=== PATIENT | male | born 1940 | race Caucasian/White ===

== ENCOUNTER 2018-12-05 09:00 | Inpatient (IN) | payer MEDICARE ==
[~2018-12-05] VITALS: Ht 177.8 cm; Wt 84.8 kg
[~2018-12-05 09:00] MED LIST: ALLO100T30 PO; ASPI-496 PO; CALC0.5C9 PO; CARV-39 PO; NITR0.4T28 SL; OMEG500C PO; POTA20TA91 PO; PRAV80TA2 PO; TORS10TA4 PO; UBID100C24 PO; VALS40TA2 PO; WARF2.5T32 PO
--- NOTE | 2018-12-05 09:40 | NUR ---
PT AMBULATORY TO ROOM, ALL MONITORS PLACED, VSS. PT STTATES HE WAS SENT HERE BY DR HUYNH "I NEED A PARACENTESIS AND THORACENTESIS, WATER RETENTION" PT ALSO C/O STABBING LEFT FLANK PAIN X 2 MONTHS. PAIN 07/12. CALL LIGHT W/I REACH, BLANKET PROVIDED.
--- NOTE | 2018-12-05 09:57 | NUR ---
[facility] RPT TO [facility]
--- NOTE | 2018-12-05 10:08 | NUR ---
report from [facility]. pt resting comfortably in bed. awaiting md assessment.
--- NOTE | 2018-12-05 10:55 | NUR ---
PT RESTING IN BED. BLANKET PROVIDED. VSS. NO OTHER NEEDS AT THIS TIME. AWAITING EDMD ASSESSMENT.
[2018-12-05] MEDS ORDERED: HYDROmorphone 2 MG/ML, 1ML IVPush PRN (11:00)
[2018-12-05] MEDS ORDERED: SODIUM CHLORIDE FLUSH 10ML SYR IVF ONE (11:00)
[2018-12-05] MEDS ORDERED: HYDROmorphone 1 MG/ML, 1ML ONE (11:07)
--- NOTE | 2018-12-05 11:10 | NUR ---
per Servando in IR, pt will go to IR at 11:30. fluids will not be collected per edmd.
[2018-12-05] MEDS ORDERED: LIDOCAINE-MPF 1%, 5ML ONE (11:14)
[2018-12-05 11:47] LABS: BASOPHILS # (AUTO) 0.01 x10^3/uL (0-0.1); BASOPHILS % (AUTO) 0 % (0-1); EOSINOPHILS # (AUTO) 0.08 x10^3/uL (0-0.4); EOSINOPHILS % (AUTO) 2 % (1-7); LYMPHOCYTES # (AUTO) 0.36 x10^3/uL (1-3.4); LYMPHOCYTES % (AUTO) 8 % (22-44); MD NO; MEAN CORPUSCULAR HEMOGLOBIN 25.8 pg (27.5-34.5); MEAN CORPUSCULAR HGB CONC 31.6 g/dL (33.2-36.2); MEAN CORPUSCULAR VOLUME 81.6 fL (81-97); MEAN PLATELET VOLUME 7.4 fL (7.4-10.4); MONOCYTES # (AUTO) 0.39 x10^3/uL (0.2-0.8); MONOCYTES % (AUTO) 9 % (2-9); NEUTROPHILS # (AUTO) 3.67 x10^3/uL (1.8-6.8); NEUTROPHILS % (AUTO) 81 % (42-75); PLATELET COUNT 106 x10^3/uL (130-400); RED BLOOD COUNT 3.36 x10^6/uL (4.38-5.82); RED CELL DISTRIBUTION WIDTH 19.4 % (9.4-14.8)
[2018-12-05 11:59] LABS: ANION GAP 7 mmol/L (5-15); CALCIUM 8.6 mg/dL (8.5-10.1); CHLORIDE 109 mmol/L (98-107)
[2018-12-05 12:04] LABS: ALANINE AMINOTRANSFERASE 19 U/L (12-78); ALKALINE PHOSPHATASE 108 U/L (45-117); BILIRUBIN,TOTAL 1.3 mg/dL (0.2-1.0); CREATININE 3.42 mg/dL (0.7-1.3)
--- NOTE | 2018-12-05 12:24 | NUR ---
pt resting with lights dimmed. vss. still awaiting ir.
--- NOTE | 2018-12-05 12:49 | NUR ---
pt to ir at this time.
[2018-12-05 13:33] LABS: INTERNATIONAL NORMALIZED RATIO 1.4 (0.93-1.1); PROTHROMBIN TIME 14.5 Seconds (9.6-11.5)
--- NOTE | 2018-12-05 14:00 | NUR ---
PT BACK FROM IR. TOLERATED WELL. VSS. NO NEEDS AT THIS TIME. PT RESTING IN ROOM WITH AT BEDSIDE.
--- NOTE | 2018-12-05 15:40 | NUR ---
per edmd, Dr. Herrera coming to evaluate pt and provide admission recommendation. pt resting in room. no needs at this time.
--- NOTE | 2018-12-05 17:41 | NUR ---
dr. dobson to bedside
[2018-12-05 19:20] VITALS: BP 92/69
[2018-12-05] MEDS ORDERED: ACETAMINOPHEN 325 MG TABLET PO PRN (21:30)
[2018-12-05] MEDS ORDERED: LIDODERM 5% PATCH TD PRN (21:30)
[2018-12-05] MEDS ORDERED: ONDANSETRON ODT 4 MG PO PRN (21:30)
[2018-12-05] MEDS ORDERED: LABETALOL 5MG/ML, 20ML IVPush PRN (21:30)
[2018-12-05] MEDS ORDERED: DOCUSATE 100 MG CAPSULE PO PRN (21:30)
[2018-12-05] MEDS ORDERED: ATORVASTATIN 20 MG TABLET PO SCH (22:03)
[2018-12-05] MEDS ORDERED: WARFARIN 2 MG TABLET PO-COUM ONE (23:00)
[2018-12-06] MEDS: TEMAZEPAM 15 MG CAPSULE PO PRN ×2 (00:42→20:29)
[2018-12-06 01:20] VITALS: BP 102/65
[2018-12-06] MEDS: OXYcodone/APAP 5/325MG TABLET PO PRN ×4 (06:04→23:51)
[2018-12-06 06:09] LABS: BASOPHILS # (AUTO) 0.01 x10^3/uL (0-0.1); BASOPHILS % (AUTO) 0 % (0-1); EOSINOPHILS # (AUTO) 0.22 x10^3/uL (0-0.4); EOSINOPHILS % (AUTO) 6 % (1-7); LYMPHOCYTES # (AUTO) 0.43 x10^3/uL (1-3.4); LYMPHOCYTES % (AUTO) 11 % (22-44); MD NO; MEAN CORPUSCULAR HEMOGLOBIN 26.2 pg (27.5-34.5); MEAN CORPUSCULAR HGB CONC 32.4 g/dL (33.2-36.2); MEAN PLATELET VOLUME 7.4 fL (7.4-10.4); MONOCYTES # (AUTO) 0.35 x10^3/uL (0.2-0.8); MONOCYTES % (AUTO) 9 % (2-9); NEUTROPHILS # (AUTO) 2.83 x10^3/uL (1.8-6.8); NEUTROPHILS % (AUTO) 74 % (42-75); PLATELET COUNT 103 x10^3/uL (130-400); RED BLOOD COUNT 3.43 x10^6/uL (4.38-5.82); RED CELL DISTRIBUTION WIDTH 19.5 % (9.4-14.8)
[2018-12-06 06:13] LABS: ANION GAP 5 mmol/L (5-15); CALCIUM 8.3 mg/dL (8.5-10.1); CHLORIDE 111 mmol/L (98-107)
[2018-12-06 06:14] LABS: CREATININE 3.17 mg/dL (0.7-1.3)
[2018-12-06 07:00] VITALS: BP 108/69
[2018-12-06] MEDS ORDERED: METOLAZONE 2.5 MG TABLET PO SCH (09:00)
[2018-12-06] MEDS ORDERED: POTASSIUM CHLORIDE 10 MEQ TABLET.ER PO ONE (09:00)
[2018-12-06] MEDS: POTASSIUM CHLORIDE 10 MEQ TABLET.ER PO SCH (09:00)
[2018-12-06] MEDS ORDERED: TEMPLATE NON-FORMULARY MED. (Ubidecarenone (Coq-10) 100 MG) PO SCH (09:00)
[2018-12-06] MEDS: OMEGA-3/FISH OIL CAPSULE PO SCH ×2 (09:21→20:29)
[2018-12-06] MEDS: CALCITRIOL 0.5 MCG CAPSULE PO SCH (09:21)
[2018-12-06] MEDS: ASPIRIN 81 MG TABLET EC PO SCH (09:21)
[2018-12-06] MEDS: ALLOPURINOL 100 MG TABLET PO SCH (09:21)
[2018-12-06] MEDS ORDERED: TORSEMIDE 20 MG TABLET PO SCH (09:30)
[2018-12-06] MEDS ORDERED: METOLAZONE 5 MG TABLET ONE (10:22)
[2018-12-06] MEDS: AMIODARONE 200 MG TABLET PO SCH (10:29)
[2018-12-06 13:32] LABS: CALCIUM 8.6 mg/dL (8.5-10.1)
[2018-12-06 13:36] LABS: INTERNATIONAL NORMALIZED RATIO 1.38 (0.93-1.1); PROTHROMBIN TIME 14.3 Seconds (9.6-11.5)
[2018-12-06 13:59] VITALS: BP 110/73
[2018-12-06 14:50] LABS: MICROSCOPIC INDICATED
[2018-12-06 15:02] LABS: CULTURE INDICATED? NO
[2018-12-06] MEDS ORDERED: WARFARIN 3 MG TABLET PO-COUM ONE (18:00)
[2018-12-06] MEDS: CARVEDILOL 25 MG TABLET PO SCH (18:04)
[2018-12-06 20:00] VITALS: BP 93/59
[2018-12-06] MEDS ORDERED: PRAVASTATIN 40 MG TABLET PO SCH (21:00)
[2018-12-07 01:30] VITALS: BP 94/60
[2018-12-07 06:07] VITALS: BP 94/58
[2018-12-07] MEDS: CARVEDILOL 25 MG TABLET PO SCH (06:12)
[2018-12-07 06:15] LABS: INTERNATIONAL NORMALIZED RATIO 1.5 (0.93-1.1); PROTHROMBIN TIME 15.5 Seconds (9.6-11.5)
[2018-12-07 06:21] LABS: ALBUMIN 2.6 g/dL (3.4-5.0); ANION GAP 5 mmol/L (5-15); CALCIUM 8.3 mg/dL (8.5-10.1); CHLORIDE 110 mmol/L (98-107)
[2018-12-07 06:27] LABS: % IRON SATURATION 8 % (20-55); CREATININE 3.17 mg/dL (0.7-1.3); IRON LEVEL 30 mcg/dL (65-175); TOTAL IRON BINDING CAPACITY 363 mcg/dL (250-450)
[2018-12-07 07:32] VITALS: BP 103/65
[2018-12-07] MEDS ORDERED: TORSEMIDE 20 MG TABLET PO SCH (09:00)
[2018-12-07] MEDS: ALLOPURINOL 100 MG TABLET PO SCH (09:54)
[2018-12-07] MEDS: IRON SUCROSE COMPLEX 100MG/5ML IV SCH ×2 (09:54→10:43)
[2018-12-07] MEDS: OMEGA-3/FISH OIL CAPSULE PO SCH (09:54)
[2018-12-07] MEDS: POTASSIUM CHLORIDE 10 MEQ TABLET.ER PO SCH (09:55)
[2018-12-07] MEDS: ASPIRIN 81 MG TABLET EC PO SCH (09:55)
[2018-12-07] MEDS: AMIODARONE 200 MG TABLET PO SCH (09:55)
[2018-12-07] MEDS: CALCITRIOL 0.5 MCG CAPSULE PO SCH (09:55)
[2018-12-07] MEDS: OXYcodone/APAP 5/325MG TABLET PO PRN (09:59)
[2018-12-07] MEDS ORDERED: METO2.5T PO (11:12)
[2018-12-07] MEDS ORDERED: LIDO700A20 TD (11:12)
[2018-12-07] MEDS ORDERED: TORS20TA PO (11:12)
[2018-12-07] MEDS ORDERED: CARV25TA12 PO (11:12)
[2018-12-07] MEDS ORDERED: AMIO200T42 PO (11:12)
[2018-12-07] MEDS ORDERED: ACET325T14 PO (11:12)
[2018-12-07 12:17] LABS: CREATININE,URINE RANDOM 44.5 mg/dL
[2018-12-07] MEDS ORDERED: TRAM50TA2 PO (14:12)
[2018-12-07] MEDS ORDERED: WARFARIN 5 MG TABLET PO-COUM ONE (18:00)
== END 2018-12-07 13:49 | disposition home or self-care (01) | DRG 682 ==
LOC: ED 10:52 → OBSVTOIN 17:36 → EDIP 17:36 → INTOOBSV 17:36 → 4EST 19:07 → DCLOUNGE 12-07 13:12
PROVIDERS: ADMIT Hospitalist; ATTEND Hospitalist
PROC: 0W993ZZ Drainage of Right Pleural Cavity, Percutaneous Approach (ICD-10-PCS; principal; 2018-12-05)
PROC: 0W9G3ZZ Drainage of Peritoneal Cavity, Percutaneous Approach (ICD-10-PCS; 2018-12-05)
DX: N17.9 Acute kidney failure, unspecified (principal); I50.23 Acute on chronic systolic (congestive) heart failure; D68.69 Other thrombophilia; I42.9 Cardiomyopathy, unspecified; R18.8 Other ascites; J91.8 Pleural effusion in other conditions classified elsewhere; N18.4 Chronic kidney disease, stage 4 (severe); G89.29 Other chronic pain; M10.9 Gout, unspecified; M54.9 Dorsalgia, unspecified; D50.9 Iron deficiency anemia, unspecified; D69.2 Other nonthrombocytopenic purpura; E78.5 Hyperlipidemia, unspecified; I25.2 Old myocardial infarction; Z87.891 Personal history of nicotine dependence; Z95.1 Presence of aortocoronary bypass graft; Z95.810 Presence of automatic (implantable) cardiac defibrillator
CPT/HCPCS: 32555; 36415; 49083; 71045; 76770; 80048; 80053; 80069; 81001; 82310; 82436; 82570; 82728; 83540; 83550; 83605; 83690; 83880; 83970; 84133; 84156; 84300; 85025; 85610; 96374; 99285; G0378; J1170; J1756

== ENCOUNTER 2019-03-30 07:18 | Emergency (ER) | payer MEDICARE ==
[~2019-03-30] VITALS: Ht 177.8 cm; Wt 82.1 kg
[~2019-03-30 07:18] MED LIST changes: +ACET325T14 PO; +AMIO200T42 PO; +CARV25TA12 PO; +LIDO700A20 TD; +METO2.5T PO; +TORS20TA PO; +TRAM50TA2 PO
--- NOTE | 2019-03-30 07:38 | NUR ---
PT RESTING ON MARY SPEAKING WITH BRITTNI
--- NOTE | 2019-03-30 07:45 | NUR ---
78 Y/O MALE PRESENTS TO ED WITH C/O LEFT CHEST PAIN D/T GLF. "last night I TRIPPED AND FELL OVER A CHAIR LEG. I FELL I DON'T KNOW IF I HIT MY HEAD, BUT I DIDN'T LOSE CONSCIOUSNESS. I DON'T KNOW WHAT I DID. I WASN'T HURTING LAST NIGHT. I STARTED HURTING ABOUT 0300. IT'S MY LEFT CHEST. I COULD NO LONGER SHIFT OR TURN MY POSITION IN BED. I COULD ONLY LAY FLAT. BEDSIDE. NO C/O N/V/D, SYNCOPE. PT PLACED ON CONT PULSE OX,NIBP.
[2019-03-30] MEDS ORDERED: HYDROcodone/APAP 5/325 TABLET PO ONE (07:47)
[2019-03-30] MEDS ORDERED: HYDROcodone/APAP 5/325 TABLET ONE (07:58)
[2019-03-30 08:12] LABS: BASOPHILS # (AUTO) 0.01 x10^3/uL (0-0.1); BASOPHILS % (AUTO) 0 % (0-1); EOSINOPHILS # (AUTO) 0.14 x10^3/uL (0-0.4); EOSINOPHILS % (AUTO) 3 % (1-7); LYMPHOCYTES # (AUTO) 0.44 x10^3/uL (1-3.4); LYMPHOCYTES % (AUTO) 10 % (22-44); MD NO; MEAN CORPUSCULAR HEMOGLOBIN 30.7 pg (27.5-34.5); MEAN CORPUSCULAR HGB CONC 32.6 g/dL (33.2-36.2); MEAN CORPUSCULAR VOLUME 94.3 fL (81-97); MEAN PLATELET VOLUME 7.3 fL (7.4-10.4); MONOCYTES # (AUTO) 0.43 x10^3/uL (0.2-0.8); MONOCYTES % (AUTO) 10 % (2-9); NEUTROPHILS # (AUTO) 3.29 x10^3/uL (1.8-6.8); NEUTROPHILS % (AUTO) 76 % (42-75); PLATELET COUNT 104 x10^3/uL (130-400); RED BLOOD COUNT 3.06 x10^6/uL (4.38-5.82)
[2019-03-30 08:23] LABS: ANION GAP 8 mmol/L (5-15); CALCIUM 8.9 mg/dL (8.5-10.1); CHLORIDE 105 mmol/L (98-107); CREATININE 2.89 mg/dL (0.7-1.3)
--- NOTE | 2019-03-30 08:26 | NUR ---
PT RESTING ON GURNEY. NO ACUTE DISTRESS NOTED. PT BEDSIDE. NO NEEDS REQUESTED AT THIS TIME.
[2019-03-30 08:27] LABS: TROPONIN I 0.026 ng/mL (0.000-0.045)
[2019-03-30 09:30] VITALS: BP 89/46
--- NOTE | 2019-03-30 09:30 | NUR ---
PT RESTING ON GURNEY. EDMD BEDSIDE. PT AND VERBALIZED UNDERSTANDING REGARDING POC. PT STATES "MY BLOOD PRESSURE ALWAYS RUNS LOW. IT'S IN THE 80S SOMETIMES." NO NEEDS REQUESTED AT THIS TIME.
--- NOTE | 2019-03-30 10:00 | NUR ---
Patient/Caregiver given discharge instructions and they have confirmed that they understand the instructions. Patient ambulatory with steady gait. pt left with all personal belongings.
== END 2019-03-30 10:02 | disposition home or self-care (01) ==
LOC: ED 08:44
DX: S20.219A Contusion of unspecified front wall of thorax, initial encounter (principal); I25.2 Old myocardial infarction; I50.9 Heart failure, unspecified; I42.9 Cardiomyopathy, unspecified; W01.0XXA Fall on same level from slipping, tripping and stumbling without subsequent striking against object, initial encounter; Y93.89 Activity, other specified; Y92.009 Unspecified place in unspecified non-institutional (private) residence as the place of occurrence of the external cause; Y99.8 Other external cause status
CPT/HCPCS: 36415; 71045; 80048; 82040; 84484; 85025; 93005; 99284

== ENCOUNTER 2019-04-07 10:22 | Inpatient (IN) | payer MEDICARE ==
[~2019-04-07] VITALS: Ht 177.8 cm; Wt 78.8 kg
[2019-04-07] MEDS ORDERED: SODIUM CHLORIDE FLUSH 10ML SYR IVF ONE ×2 (10:30→11:00)
--- NOTE | 2019-04-07 10:48 | NUR ---
THIS IS A 78 YEAR OLD MALE WHO C/O OF "HEART RACING". PT HAS HX PACER,[place]. PT PLACED ON PATIENT COORDINATOR, HR 137, SPO2 AT 97%, CYCLE VS. AT BS
--- NOTE | 2019-04-07 11:05 | NUR ---
EKG, LABS, CHEST X RAY COMPLETED WARM BLANKET ON, DEFIB PADS ON. AT BS. PT VERBALIZED NO NEEDS AT THIS TIME. AWAITING FURTHER ORDERS.
[2019-04-07 11:08] LABS: BASOPHILS # (AUTO) 0.01 x10^3/uL (0-0.1); BASOPHILS % (AUTO) 0 % (0-1); EOSINOPHILS # (AUTO) 0.19 x10^3/uL (0-0.4); EOSINOPHILS % (AUTO) 4 % (1-7); LYMPHOCYTES # (AUTO) 0.59 x10^3/uL (1-3.4); LYMPHOCYTES % (AUTO) 11 % (22-44); MD NO; MEAN CORPUSCULAR HEMOGLOBIN 30.2 pg (27.5-34.5); MEAN CORPUSCULAR VOLUME 94.4 fL (81-97); MEAN PLATELET VOLUME 7.2 fL (7.4-10.4); MONOCYTES # (AUTO) 0.53 x10^3/uL (0.2-0.8); MONOCYTES % (AUTO) 10 % (2-9); NEUTROPHILS # (AUTO) 3.96 x10^3/uL (1.8-6.8); NEUTROPHILS % (AUTO) 75 % (42-75); PLATELET COUNT 113 x10^3/uL (130-400); RED CELL DISTRIBUTION WIDTH 16.5 % (9.4-14.8)
[2019-04-07 11:20] LABS: ALBUMIN 3.2 g/dL (3.4-5.0); ANION GAP 8 mmol/L (5-15); CALCIUM 9.2 mg/dL (8.5-10.1); CHLORIDE 103 mmol/L (98-107); INTERNATIONAL NORMALIZED RATIO 1.92 (0.93-1.1); PROTHROMBIN TIME 19.7 Seconds (9.6-11.5)
[2019-04-07 11:25] LABS: ALANINE AMINOTRANSFERASE 22 U/L (12-78); ALKALINE PHOSPHATASE 140 U/L (45-117); BILIRUBIN,TOTAL 1.2 mg/dL (0.2-1.0); CREATININE 3.11 mg/dL (0.7-1.3); TOTAL PROTEIN 6.7 g/dL (6.4-8.2); TROPONIN I 0.129 ng/mL (0.000-0.045)
[2019-04-07] MEDS ORDERED: AMIODARONE 50 MG/ML, 3ML ONE (11:59)
[2019-04-07] MEDS ORDERED: AMIODARONE 50 MG/ML, 3ML IVPush ONE (12:00)
--- NOTE | 2019-04-07 12:04 | NUR ---
MEDICATED PER ORDERS, PT VERBALIZED NO OTHER NEEDS
[2019-04-07] MEDS ORDERED: POTASSIUM CHLORIDE 20 MEQ TAB.ER.PRT ONE (12:10)
--- NOTE | 2019-04-07 12:21 | NUR ---
REPORT TO JEFF FITCH, PLAN OF CARE DISCUSSED
[2019-04-07] MEDS ORDERED: POTASSIUM CHLORIDE 20 MEQ TAB.ER.PRT PO ONE (12:30)
[2019-04-07] MEDS ORDERED: FENTANYL PF 100 MCG/2ML IV ONE (13:00)
[2019-04-07] MEDS ORDERED: AMIODARONE 150 MG in DEXTROSE 5% 100 ML IV ONE (13:00)
[2019-04-07] MEDS ORDERED: MIDAZOLAM 1 MG/ML, 2ML IV ONE (13:00)
[2019-04-07] MEDS ORDERED: FILTER 0.22 MICRON IV PRN (13:00)
[2019-04-07 14:19] VITALS: BP 88/58
[2019-04-07] MEDS ORDERED: ACETAMINOPHEN 325 MG TABLET PO PRN (15:00)
[2019-04-07] MEDS ORDERED: NITROGLYCERIN SINGLE TAB 0.4 MG SL SCH (15:00)
[2019-04-07] MEDS ORDERED: LIDODERM 5% PATCH TD PRN (15:00)
[2019-04-07 15:48] LABS: ANION GAP 8 mmol/L (5-15); CALCIUM 8.7 mg/dL (8.5-10.1); CHLORIDE 104 mmol/L (98-107); CREATININE 3.04 mg/dL (0.7-1.3)
[2019-04-07] MEDS ORDERED: METO2.5T PO ×2 (18:06)
[2019-04-07] MEDS ORDERED: GABA-826 PO (18:08)
[2019-04-07] MEDS ORDERED: FERR324T5 PO (18:08)
[2019-04-07 18:25] VITALS: BP 97/65
[2019-04-07] MEDS: WARFARIN 2.5 MG TABLET PO-COUM SCH (18:41)
[2019-04-07] MEDS: CARVEDILOL 25 MG TABLET PO SCH (18:42)
[2019-04-07] MEDS: PRAVASTATIN 40 MG TABLET PO SCH (20:08)
[2019-04-07 20:50] VITALS: BP 95/60
[2019-04-07] MEDS: TORSEMIDE 20 MG TABLET PO SCH (20:52)
[2019-04-07] MEDS ORDERED: OMEGA-3/FISH OIL CAPSULE PO SCH (21:00)
[2019-04-08 04:00] VITALS: BP 96/55
[2019-04-08] MEDS: CARVEDILOL 25 MG TABLET PO SCH ×2 (05:44→17:16)
[2019-04-08 07:11] VITALS: BP 91/56
[2019-04-08] MEDS ORDERED: POTASSIUM CHLORIDE 10 MEQ TABLET.ER PO SCH (09:00)
[2019-04-08] MEDS ORDERED: TEMPLATE NON-FORMULARY MED. (Ubidecarenone (Coq-10) 100 MG) PO SCH (09:00)
[2019-04-08] MEDS ORDERED: POTASSIUM CHLORIDE 20 MEQ TAB.ER.PRT PO SCH (09:00)
[2019-04-08] MEDS: CALCITRIOL 0.5 MCG CAPSULE PO SCH (09:32)
[2019-04-08] MEDS: ALLOPURINOL 100 MG TABLET PO SCH (09:32)
[2019-04-08] MEDS: TORSEMIDE 20 MG TABLET PO SCH ×2 (09:33→20:19)
[2019-04-08] MEDS: AMIODARONE 200 MG TABLET PO SCH (09:33)
[2019-04-08] MEDS: OMEGA-3/FISH OIL CAPSULE PO SCH ×2 (09:36→20:18)
[2019-04-08 10:25] LABS: ANION GAP 9 mmol/L (5-15); CALCIUM 8.9 mg/dL (8.5-10.1); CHLORIDE 103 mmol/L (98-107); CREATININE 2.89 mg/dL (0.7-1.3)
[2019-04-08 15:25] VITALS: BP 93/55
[2019-04-08] MEDS: WARFARIN 2.5 MG TABLET PO-COUM SCH (17:16)
[2019-04-08 18:39] VITALS: BP 92/57
[2019-04-08] MEDS: PRAVASTATIN 40 MG TABLET PO SCH (20:18)
[2019-04-09 01:42] VITALS: BP 93/58
[2019-04-09 05:45] LABS: ANION GAP 10 mmol/L (5-15); CALCIUM 8.9 mg/dL (8.5-10.1); CHLORIDE 102 mmol/L (98-107); CREATININE 2.77 mg/dL (0.7-1.3)
[2019-04-09] MEDS ORDERED: POTASSIUM CHLORIDE 40 MEQ in SODIUM CHLORIDE 0.9% 500 ML IV ONE (06:00)
[2019-04-09] MEDS ORDERED: POTASSIUM CHLORIDE 20 MEQ TAB.ER.PRT PO ONE (06:00)
[2019-04-09 06:04] VITALS: BP 92/56
[2019-04-09] MEDS: CARVEDILOL 25 MG TABLET PO SCH ×2 (06:06→18:06)
[2019-04-09] MEDS ORDERED: MAGNESIUM SULFATE PMX 2GM/50ML 50 ML IV ONE (08:30)
[2019-04-09] MEDS ORDERED: METOLAZONE 2.5 MG TABLET PO SCH (09:00)
[2019-04-09] MEDS: AMIODARONE 200 MG TABLET PO SCH (09:09)
[2019-04-09] MEDS: TORSEMIDE 20 MG TABLET PO SCH (09:10)
[2019-04-09] MEDS: CALCITRIOL 0.5 MCG CAPSULE PO SCH (09:11)
[2019-04-09] MEDS: OMEGA-3/FISH OIL CAPSULE PO SCH ×2 (09:11→19:59)
[2019-04-09] MEDS: ALLOPURINOL 100 MG TABLET PO SCH (09:11)
[2019-04-09] MEDS: POTASSIUM CHLORIDE 20 MEQ TAB.ER.PRT PO SCH ×2 (09:14→18:04)
[2019-04-09 12:09] LABS: ANION GAP 8 mmol/L (5-15); CALCIUM 9.1 mg/dL (8.5-10.1); CHLORIDE 104 mmol/L (98-107)
[2019-04-09 12:11] LABS: CREATININE 2.57 mg/dL (0.7-1.3)
[2019-04-09 13:20] VITALS: BP 104/67
[2019-04-09] MEDS: WARFARIN 2.5 MG TABLET PO-COUM SCH (18:06)
[2019-04-09 18:31] VITALS: BP 96/57
[2019-04-09] MEDS: PRAVASTATIN 40 MG TABLET PO SCH (19:59)
[2019-04-10 01:45] VITALS: BP 92/54
[2019-04-10 05:01] LABS: ANION GAP 7 mmol/L (5-15); CHLORIDE 105 mmol/L (98-107); CREATININE 2.51 mg/dL (0.7-1.3)
[2019-04-10 06:02] VITALS: BP 97/61
[2019-04-10] MEDS: CARVEDILOL 25 MG TABLET PO SCH (06:02)
[2019-04-10 07:46] VITALS: BP 93/58
[2019-04-10] MEDS: AMIODARONE 200 MG TABLET PO SCH (08:04)
[2019-04-10] MEDS: OMEGA-3/FISH OIL CAPSULE PO SCH (08:04)
[2019-04-10] MEDS: CALCITRIOL 0.5 MCG CAPSULE PO SCH (08:04)
[2019-04-10] MEDS: ALLOPURINOL 100 MG TABLET PO SCH (08:04)
[2019-04-10] MEDS: POTASSIUM CHLORIDE 20 MEQ TAB.ER.PRT PO SCH (08:04)
[2019-04-10 13:32] VITALS: BP 95/60
[2019-04-10] MEDS ORDERED: POTA20TA91 PO (14:54)
[2019-04-11] MEDS ORDERED: POTASSIUM CHLORIDE 20 MEQ TAB.ER.PRT PO SCH (09:00)
== END 2019-04-10 16:05 | disposition home or self-care (01) | DRG 308 ==
LOC: ED 11:44 → EDIP 11:45 → ED 11:54 → 5SO 12:25 → DCLOUNGE 04-10 15:54
PROVIDERS: ADMIT Internal Medicine; ATTEND Internal Medicine
PROC: 5A2204Z Restoration of Cardiac Rhythm, Single (ICD-10-PCS; principal; 2019-04-07)
DX: I47.2 Ventricular tachycardia (principal); N18.6 End stage renal disease; I50.42 Chronic combined systolic (congestive) and diastolic (congestive) heart failure; D68.69 Other thrombophilia; N17.9 Acute kidney failure, unspecified; E87.6 Hypokalemia; I25.5 Ischemic cardiomyopathy; I48.91 Unspecified atrial fibrillation; Z87.891 Personal history of nicotine dependence; Z95.1 Presence of aortocoronary bypass graft; I25.2 Old myocardial infarction; Z95.5 Presence of coronary angioplasty implant and graft; Z95.810 Presence of automatic (implantable) cardiac defibrillator
CPT/HCPCS: 36415; 71045; 80048; 80053; 83735; 84484; 85025; 85610; 93005; 96374; 99291; G0378; J2250; J3010; J3480; J0282; J3475; J7040